=== PATIENT | male | born 1955 | race African-American/Black ===

== ENCOUNTER 2017-10-21 11:53 | Inpatient (IN) | payer MEDICAID, MEDICARE ==
[~2017-10-21] VITALS: Ht 188 cm; Wt 90.7 kg
[~2017-10-21 11:53] MED LIST: AMLO10TA2 PO; ENAL10TA PO
[2017-10-21] MEDS ORDERED: ZOLPIDEM TARTRATE 10 MG TABLET (12:13)
[2017-10-21] MEDS ORDERED: LISINOPRIL 10 MG TABLET (12:13)
[2017-10-21] MEDS ORDERED: ALPRAZOLAM 2 MG (12:13)
[2017-10-21] MEDS ORDERED: D AMPHETAMINE SALT COMBO (12:13)
[2017-10-21] MEDS ORDERED: HYDROCODONE/ACETAMINOPHEN 10-3 (12:13)
[2017-10-21] MEDS ORDERED: CARVEDILOL 25 MG TABLET (12:13)
[2017-10-21] MEDS ORDERED: ONDANSETRON 4 MG/2 ML VIAL IV ONE ×2 (12:30→15:15)
[2017-10-21] MEDS ORDERED: ONDANSETRON 4 MG/2 ML VIAL ONE ×2 (12:45→15:27)
[2017-10-21 12:56] LABS: BASOPHILS # (AUTO) 0.1 K/uL (0.0-8.0); BASOPHILS % (AUTO) 0.4 % (0.0-2.0); EOSINOPHILS # (AUTO) 0.2 K/uL (0.0-0.7); EOSINOPHILS % (AUTO) 1.9 % (0.0-7.0); HEMATOCRIT 40.5 % (36.7-47.1); HEMOGLOBIN 13.3 g/dL (12.5-16.3); LYMPHOCYTES # (AUTO) 1.7 K/uL (20.0-40.0); LYMPHOCYTES % (AUTO) 13.1 % (20.5-51.5); MEAN CORPUSCULAR HEMOGLOBIN 27.4 uug (23.8-33.4); MEAN CORPUSCULAR HGB CONC 33 g/dL (32.5-36.3); MEAN CORPUSCULAR VOLUME 83.1 fL (73.0-96.2); MONOCYTES # (AUTO) 0.9 K/uL (2.0-10.0); MONOCYTES % (AUTO) 7.5 % (0.0-11.0); NEUTROPHILS # (AUTO) 9.8 K/uL (1.8-8.9); NEUTROPHILS % (AUTO) 77.1 % (38.5-71.5); PLATELET COUNT (AUTO) 208 K/uL (152-348); RED BLOOD CELL COUNT(AUTO) 4.87 MIL/uL (4.06-5.63); WHITE BLOOD COUNT (AUTO) 12.7 K/uL (3.6-10.2)
[2017-10-21 13:10] LABS: BILIRUBIN,DIRECT 0.1 mg/dL (0.0-0.2); BILIRUBIN,TOTAL 0.3 mg/dL (0.2-1.0); CREATININE 1.7 mg/dL (0.6-1.3); POTASSIUM 3.7 mmol/L (3.5-5.1); TOTAL PROTEIN, SERUM 7.8 g/dL (6.4-8.2)
[2017-10-21] MEDS ORDERED: IV NORMAL SALINE 500 ML BAG IV ONE ×2 (14:15→15:15)
[2017-10-21 16:05] LABS: *BILIRUBIN,URIN NEGATIVE (NEGATIVE); *BLOOD, URINE NEGATIVE (NEGATIVE); *CLARITY,URINE SLIGHTLY CLOUDY (CLEAR); *COLOR,URINE YELLOW (YELLOW); *KETONES,URINE NEGATIVE (NEGATIVE); *PROTEIN,URINE 2+ (NEGATIVE); *UROBILINOGEN,URINE 0.2 E.U./dl (NORMAL); LEUKOCYTE ESTERASE ,URINE TRACE (NEGATIVE); NITRITE, URINE NEGATIVE (NEGATIVE); PH,URINE 5.5 (5.0-8.0); UGLUCOSE NEGATIVE (NEGATIVE)
[2017-10-21 16:14] LABS: BACTERIA,URINE FEW /HPF (NONE SEEN); SQUAMOUS EPITHELIAL CELL,UR FEW /HPF (NONE SEEN); WBC,URINE 20-50 /HPF (0-3)
[2017-10-21] MEDS ORDERED: CEFTRIAXONE 1 G in IV DEXTROSE 5% 50 ML IV ONE (16:30)
[2017-10-21] MEDS ORDERED: CEFTRIAXONE 1 G VIAL ONE (16:49)
[2017-10-21 17:30] VITALS: BP 165/94
[2017-10-21] MEDS ORDERED: ACETAMINOPHEN 325 MG TABLET PO PRN (17:30)
[2017-10-21] MEDS ORDERED: ONDANSETRON 4 MG/2 ML VIAL IV PRN (17:30)
[2017-10-21] MEDS ORDERED: Z GUARD REMEDY PASTE 57 GM TUBE TOP PRN (17:30)
[2017-10-21] MEDS ORDERED: ZOLPIDEM 5 MG TABLET PO PRN (17:30)
[2017-10-21] MEDS: CARVEDILOL 25 MG TABLET PO SCH (17:48)
[2017-10-21] MEDS: CEFTRIAXONE 1 G in IV DEXTROSE 5% 50 ML IV SCH (18:56)
[2017-10-21 20:00] VITALS: BP 158/90
[2017-10-21] MEDS: ENOXAPARIN SODIUM 40 MG/0.4 ML DISP.SYRIN SQ SCH (20:44)
[2017-10-22] VITALS: BP 157/82
[2017-10-22] MEDS: HYDROCODONE/APAP 10-325 MG TABLET PO PRN ×2 (00:18→12:06)
[2017-10-22 04:00] VITALS: BP 161/92
[2017-10-22 07:00] LABS: BASOPHILS % (AUTO) 0.3 % (0.0-2.0); EOSINOPHILS # (AUTO) 0.1 K/uL (0.0-0.7); EOSINOPHILS % (AUTO) 0.5 % (0.0-7.0); HEMATOCRIT 42.5 % (36.7-47.1); HEMOGLOBIN 14.4 g/dL (12.5-16.3); LYMPHOCYTES % (AUTO) 17.8 % (20.5-51.5); MEAN CORPUSCULAR HEMOGLOBIN 27.9 uug (23.8-33.4); MEAN CORPUSCULAR HGB CONC 34 g/dL (32.5-36.3); MEAN CORPUSCULAR VOLUME 82.5 fL (73.0-96.2); MONOCYTES # (AUTO) 0.9 K/uL (2.0-10.0); MONOCYTES % (AUTO) 8.3 % (0.0-11.0); NEUTROPHILS % (AUTO) 73.1 % (38.5-71.5); PLATELET COUNT (AUTO) 217 K/uL (152-348); RED BLOOD CELL COUNT(AUTO) 5.16 MIL/uL (4.06-5.63)
[2017-10-22 07:14] LABS: BILIRUBIN,TOTAL 0.4 mg/dL (0.2-1.0); CREATININE 1.8 mg/dL (0.6-1.3); MAGNESIUM 1.9 mg/dL (1.8-2.4); PHOSPHOROUS 3.7 mg/dL (2.5-4.9); POTASSIUM 4.4 mmol/L (3.5-5.1); TOTAL PROTEIN, SERUM 7.2 g/dL (6.4-8.2)
[2017-10-22] MEDS: CARVEDILOL 25 MG TABLET PO SCH ×2 (08:03→17:06)
[2017-10-22] MEDS: LISINOPRIL 10 MG TABLET PO SCH (08:50)
[2017-10-22 11:21] LABS: THYROID STIMULATING HORMONE 1.095 mIU/mL (0.358-3.740)
[2017-10-22 11:46] VITALS: BP 132/72
[2017-10-22 11:51] VITALS: BP 160/87
[2017-10-22] MEDS: AMLODIPINE 5 MG TABLET PO SCH ×2 (12:06→20:42)
[2017-10-22 16:03] VITALS: BP 122/52
[2017-10-22] MEDS: CEFTRIAXONE 1 G in IV DEXTROSE 5% 50 ML IV SCH (17:04)
[2017-10-22 18:26] LABS: *CREATININE,URINE 276.4 mg/dL (30-125); *URINE TOTAL PROTEIN RANDOM 114.8 mg/dL (<150/24HR)
[2017-10-22 18:28] LABS: *BILIRUBIN,URIN NEGATIVE (NEGATIVE); *BLOOD, URINE Trace-intact (NEGATIVE); *CLARITY,URINE SLIGHTLY CLOUDY (CLEAR); *COLOR,URINE YELLOW (YELLOW); *KETONES,URINE NEGATIVE (NEGATIVE); *PROTEIN,URINE 2+ (NEGATIVE); *UROBILINOGEN,URINE 0.2 E.U./dl (NORMAL); LEUKOCYTE ESTERASE ,URINE NEGATIVE (NEGATIVE); NITRITE, URINE NEGATIVE (NEGATIVE); UGLUCOSE NEGATIVE (NEGATIVE)
[2017-10-22 19:11] LABS: SQUAMOUS EPITHELIAL CELL,UR FEW /HPF (NONE SEEN)
[2017-10-22 19:12] LABS: BACTERIA,URINE RARE /HPF (NONE SEEN)
[2017-10-22 20:00] VITALS: BP 133/61
[2017-10-22] MEDS: LACTULOSE 20 G/30 ML LIQUID UDC PO SCH (20:42)
[2017-10-22] MEDS: ENOXAPARIN SODIUM 40 MG/0.4 ML DISP.SYRIN SQ SCH (20:45)
[2017-10-22] MEDS: MORPHINE SULFATE 4 MG/1 ML DISP.SYRIN IV PRN (20:49)
[2017-10-22] MEDS: hydrALAZINE HCL 25 MG TABLET PO SCH (22:31)
[2017-10-23] VITALS: BP 125/61
[2017-10-23 04:00] VITALS: BP 138/72
[2017-10-23] MEDS: hydrALAZINE HCL 25 MG TABLET PO SCH ×3 (05:32→23:10)
[2017-10-23 06:45] LABS: BASOPHILS # (AUTO) 0.1 K/uL (0.0-8.0); BASOPHILS % (AUTO) 0.5 % (0.0-2.0); EOSINOPHILS # (AUTO) 0.1 K/uL (0.0-0.7); EOSINOPHILS % (AUTO) 0.7 % (0.0-7.0); HEMOGLOBIN 13.5 g/dL (12.5-16.3); LYMPHOCYTES # (AUTO) 1.7 K/uL (20.0-40.0); LYMPHOCYTES % (AUTO) 12.5 % (20.5-51.5); MEAN CORPUSCULAR HEMOGLOBIN 27.6 uug (23.8-33.4); MEAN CORPUSCULAR HGB CONC 34 g/dL (32.5-36.3); MEAN CORPUSCULAR VOLUME 81.7 fL (73.0-96.2); MONOCYTES # (AUTO) 1.4 K/uL (2.0-10.0); MONOCYTES % (AUTO) 9.9 % (0.0-11.0); NEUTROPHILS # (AUTO) 10.6 K/uL (1.8-8.9); NEUTROPHILS % (AUTO) 76.4 % (38.5-71.5); PLATELET COUNT (AUTO) 181 K/uL (152-348); RED BLOOD CELL COUNT(AUTO) 4.89 MIL/uL (4.06-5.63); WHITE BLOOD COUNT (AUTO) 13.9 K/uL (3.6-10.2)
[2017-10-23 06:46] LABS: BILIRUBIN,TOTAL 0.5 mg/dL (0.2-1.0); CREATININE 1.6 mg/dL (0.6-1.3); MAGNESIUM 1.8 mg/dL (1.8-2.4); PHOSPHOROUS 2.8 mg/dL (2.5-4.9)
[2017-10-23] MEDS: LISINOPRIL 10 MG TABLET PO SCH (08:15)
[2017-10-23] MEDS: CARVEDILOL 25 MG TABLET PO SCH ×2 (08:15→17:29)
[2017-10-23] MEDS: LACTULOSE 20 G/30 ML LIQUID UDC PO SCH ×2 (08:16→20:31)
[2017-10-23] MEDS: AMLODIPINE 5 MG TABLET PO SCH ×2 (08:16→20:31)
[2017-10-23] MEDS: MORPHINE SULFATE 4 MG/1 ML DISP.SYRIN IV PRN ×3 (08:20→20:53)
[2017-10-23] MEDS ORDERED: VANCOMYCIN IV 1 G in PREMIXED 0 EACH IV ONE (10:45)
[2017-10-23 11:55] VITALS: BP 109/69
[2017-10-23] MEDS: MEROPENEM 1 G in IV NORMAL SALINE 100 ML IV SCH ×2 (12:24→20:31)
[2017-10-23] MEDS ORDERED: VANCOMYCIN IV 1,500 MG in IV DEXTROSE 5% 500 ML IV ONE (13:00)
[2017-10-23 15:39] VITALS: BP 101/57
[2017-10-23 20:00] VITALS: BP 130/52
[2017-10-23] MEDS: ENOXAPARIN SODIUM 40 MG/0.4 ML DISP.SYRIN SQ SCH (20:35)
[2017-10-24] MEDS: MEROPENEM 1 G in IV NORMAL SALINE 100 ML IV SCH ×3 (03:58→20:13)
[2017-10-24 05:07] VITALS: BP 125/61
[2017-10-24] MEDS: hydrALAZINE HCL 25 MG TABLET PO SCH ×3 (06:32→22:00)
[2017-10-24 06:41] LABS: BASOPHILS % (AUTO) 0.4 % (0.0-2.0); EOSINOPHILS # (AUTO) 0.1 K/uL (0.0-0.7); EOSINOPHILS % (AUTO) 0.8 % (0.0-7.0); HEMATOCRIT 39.6 % (36.7-47.1); HEMOGLOBIN 13.2 g/dL (12.5-16.3); LYMPHOCYTES # (AUTO) 1.8 K/uL (20.0-40.0); MEAN CORPUSCULAR HEMOGLOBIN 27.4 uug (23.8-33.4); MEAN CORPUSCULAR HGB CONC 33 g/dL (32.5-36.3); MEAN CORPUSCULAR VOLUME 82.5 fL (73.0-96.2); MONOCYTES # (AUTO) 1.5 K/uL (2.0-10.0); MONOCYTES % (AUTO) 13.2 % (0.0-11.0); NEUTROPHILS # (AUTO) 7.7 K/uL (1.8-8.9); NEUTROPHILS % (AUTO) 69.6 % (38.5-71.5); PLATELET COUNT (AUTO) 168 K/uL (152-348); WHITE BLOOD COUNT (AUTO) 11.1 K/uL (3.6-10.2)
[2017-10-24 07:02] LABS: CREATININE 1.7 mg/dL (0.6-1.3); MAGNESIUM 2.1 mg/dL (1.8-2.4); PHOSPHOROUS 3.2 mg/dL (2.5-4.9); POTASSIUM 4.1 mmol/L (3.5-5.1)
[2017-10-24] MEDS: AMLODIPINE 5 MG TABLET PO SCH ×2 (08:10→21:52)
[2017-10-24] MEDS: LISINOPRIL 10 MG TABLET PO SCH (08:11)
[2017-10-24] MEDS: CARVEDILOL 25 MG TABLET PO SCH ×2 (08:11→18:05)
[2017-10-24] MEDS: LACTULOSE 20 G/30 ML LIQUID UDC PO SCH ×2 (08:12→20:12)
[2017-10-24] MEDS: ALPRAZOLAM 0.5 MG TABLET PO PRN ×2 (08:12→20:12)
[2017-10-24 08:30] VITALS: BP 116/51
[2017-10-24] MEDS ORDERED: VANCOMYCIN IV 1,500 MG in IV DEXTROSE 5% 500 ML IV ONE (09:00)
[2017-10-24] MEDS: MORPHINE SULFATE 4 MG/1 ML DISP.SYRIN IV PRN ×3 (10:12→22:38)
[2017-10-24 11:16] VITALS: BP 115/58
[2017-10-24] MEDS ORDERED: MAGNESIUM CITRATE 296 ML BOTTLE PO ONE (14:45)
[2017-10-24 15:22] VITALS: BP 104/58
[2017-10-24 20:45] VITALS: BP 108/66
[2017-10-24] MEDS ORDERED: TAMSULOSIN HCL 0.4 MG CAP.SR.24H PO SCH (21:00)
[2017-10-24] MEDS: ENOXAPARIN SODIUM 40 MG/0.4 ML DISP.SYRIN SQ SCH (22:07)
[2017-10-25] MEDS: MEROPENEM 1 G in IV NORMAL SALINE 100 ML IV SCH ×2 (03:23→11:55)
[2017-10-25 04:59] VITALS: BP 95/45
[2017-10-25 05:06] LABS: A/G RATIO 0.9 (0.7-1.7); ALBUMIN 2.9 g/dL (2.9-4.4); ALPHA-1-GLOBULIN 0.3 g/dL (0.0-0.4); ALPHA-2-GLOBULIN 0.7 g/dL (0.4-1.0); BETA GLOBULIN 1.1 g/dL (0.7-1.3); GAMMA GLOBULIN 1.2 g/dL (0.4-1.8); GLOBULIN, TOTAL 3.2 g/dL (2.2-3.9); M-SPIKE Not Observed g/dL (Not Observed)
[2017-10-25] MEDS: hydrALAZINE HCL 25 MG TABLET PO SCH (06:00)
[2017-10-25 06:34] LABS: CREATININE 1.5 mg/dL (0.6-1.3); MAGNESIUM 2.3 mg/dL (1.8-2.4); PHOSPHOROUS 3.3 mg/dL (2.5-4.9); POTASSIUM 3.7 mmol/L (3.5-5.1)
[2017-10-25 06:44] LABS: BASOPHILS % (AUTO) 0.2 % (0.0-2.0); EOSINOPHILS # (AUTO) 0.2 K/uL (0.0-0.7); EOSINOPHILS % (AUTO) 1.8 % (0.0-7.0); HEMATOCRIT 38.7 % (36.7-47.1); HEMOGLOBIN 12.7 g/dL (12.5-16.3); LYMPHOCYTES # (AUTO) 1.5 K/uL (20.0-40.0); LYMPHOCYTES % (AUTO) 17.4 % (20.5-51.5); MEAN CORPUSCULAR HEMOGLOBIN 27.3 uug (23.8-33.4); MEAN CORPUSCULAR HGB CONC 33 g/dL (32.5-36.3); MEAN CORPUSCULAR VOLUME 83.4 fL (73.0-96.2); MONOCYTES # (AUTO) 1.1 K/uL (2.0-10.0); MONOCYTES % (AUTO) 12.2 % (0.0-11.0); NEUTROPHILS % (AUTO) 68.4 % (38.5-71.5); PLATELET COUNT (AUTO) 197 K/uL (152-348); RED BLOOD CELL COUNT(AUTO) 4.64 MIL/uL (4.06-5.63); WHITE BLOOD COUNT (AUTO) 8.8 K/uL (3.6-10.2)
[2017-10-25] MEDS: LACTULOSE 20 G/30 ML LIQUID UDC PO SCH (08:26)
[2017-10-25] MEDS: CARVEDILOL 25 MG TABLET PO SCH (08:27)
[2017-10-25] MEDS: MORPHINE SULFATE 4 MG/1 ML DISP.SYRIN IV PRN (08:28)
[2017-10-25] MEDS ORDERED: DOCUSATE SODIUM 100 MG CAPSULE PO SCH (09:00)
[2017-10-25] MEDS: LISINOPRIL 10 MG TABLET PO SCH (10:03)
[2017-10-25] MEDS: AMLODIPINE 5 MG TABLET PO SCH (10:03)
[2017-10-25 11:04] VITALS: BP 104/62
== END 2017-10-25 13:50 | disposition home or self-care (01) | DRG 682 ==
LOC: ER 11:58 → TELE 17:13 → MED 10-23 20:30
PROVIDERS: ADMIT Nurse Practitioner Acute Care; ATTEND Nurse Practitioner Acute Care
DX: N17.0 Acute kidney failure with tubular necrosis (principal); I21.A1 Myocardial infarction type 2; I50.43 Acute on chronic combined systolic (congestive) and diastolic (congestive) heart failure; E44.0 Moderate protein-calorie malnutrition; I42.9 Cardiomyopathy, unspecified; E87.1 Hypo-osmolality and hyponatremia; N10 Acute pyelonephritis; B96.89 Other specified bacterial agents as the cause of diseases classified elsewhere; Z90.49 Acquired absence of other specified parts of digestive tract; Z85.038 Personal history of other malignant neoplasm of large intestine; Z68.25 Body mass index [BMI] 25.0-25.9, adult; H54.8 Legal blindness, as defined in USA; H35.30 Unspecified macular degeneration; Z95.810 Presence of automatic (implantable) cardiac defibrillator; F41.9 Anxiety disorder, unspecified; F32.9 Major depressive disorder, single episode, unspecified; R22.9 Localized swelling, mass and lump, unspecified; E78.5 Hyperlipidemia, unspecified; I25.10 Atherosclerotic heart disease of native coronary artery without angina pectoris; I11.0 Hypertensive heart disease with heart failure; F17.210 Nicotine dependence, cigarettes, uncomplicated; G47.00 Insomnia, unspecified; K57.30 Diverticulosis of large intestine without perforation or abscess without bleeding; N20.0 Calculus of kidney; Z79.899 Other long term (current) drug therapy; N40.0 Benign prostatic hyperplasia without lower urinary tract symptoms; I49.1 Atrial premature depolarization
CPT/HCPCS: 36415; 70030-TC; 71045; 83605; 83690; 83735; 83970; 84100; 84155; 84156; 84165; 84300; 84443; 85025; 87086; 93005; 93307; 97165; A4663; C1758; J0696; J1650; J2185; J2270; J2405; J3370; J3490; J7030; J7040; J7060

== ENCOUNTER 2018-02-24 13:20 | Emergency (ER) | payer MEDICARE ==
[~2018-02-24] VITALS: Ht 188 cm; Wt 90.7 kg
[~2018-02-24 13:20] MED LIST changes: +ALPRAZOLAM 2 MG; -AMLO10TA2 PO; +CARVEDILOL 25 MG TABLET; -ENAL10TA PO; +HYDROCODONE/ACETAMINOPHEN 10-3; +LISINOPRIL 10 MG TABLET; +ZOLPIDEM TARTRATE 10 MG TABLET
[2018-02-24 14:25] LABS: BASOPHILS % (AUTO) 0.5 % (0.0-2.0); EOSINOPHILS # (AUTO) 0.3 K/uL (0.0-0.7); EOSINOPHILS % (AUTO) 4.1 % (0.0-7.0); HEMATOCRIT 37.9 % (36.7-47.1); HEMOGLOBIN 13.1 g/dL (12.5-16.3); LYMPHOCYTES # (AUTO) 1.9 K/uL (20.0-40.0); LYMPHOCYTES % (AUTO) 30.8 % (20.5-51.5); MEAN CORPUSCULAR HEMOGLOBIN 32.1 uug (23.8-33.4); MEAN CORPUSCULAR HGB CONC 35 g/dL (32.5-36.3); MEAN CORPUSCULAR VOLUME 92.7 fL (73.0-96.2); MONOCYTES # (AUTO) 0.4 K/uL (2.0-10.0); MONOCYTES % (AUTO) 6.4 % (0.0-11.0); NEUTROPHILS # (AUTO) 3.6 K/uL (1.8-8.9); NEUTROPHILS % (AUTO) 58.2 % (38.5-71.5); PLATELET COUNT (AUTO) 221 K/uL (152-348); RED BLOOD CELL COUNT(AUTO) 4.09 MIL/uL (4.06-5.63); WHITE BLOOD COUNT (AUTO) 6.2 K/uL (3.6-10.2)
[2018-02-24 14:30] LABS: CARBON DIOXIDE 30 mmol/L (21-32); CHLORIDE 106 mmol/L (98-107); CREATININE 1.1 mg/dL (0.6-1.3); GLUCOSE 113 mg/dL (74-106); UREA NITROGEN, BLOOD 14 mg/dL (7-18)
[2018-02-24 14:42] LABS: THYROID STIMULATING HORMONE 0.449 mIU/mL (0.358-3.740)
--- NOTE | 2018-02-24 14:50 | NUR ---
LABS DRAWN EARLIER, PT ASKED FOR URINE EARLIWER AND WAS NOT ABLE TO PROVIDE URIN. PRESENTLY PT IS SLEEPING, NO DISTRESS NOTED.
[2018-02-24 14:56] LABS: ALANINE AMINOTRANSFERASE 16 U/L (16-63); ALKALINE PHOSPHATASE 74 U/L (50-136); ASPARTATE AMINOTRANSFERASE 15 U/L (15-37); BILIRUBIN,DIRECT 0.1 mg/dL (0.0-0.2); BILIRUBIN,TOTAL 0.5 mg/dL (0.2-1.0); TOTAL PROTEIN, SERUM 7.2 g/dL (6.4-8.2)
[2018-02-24 15:20] LABS: ETHANOL < 3 MG/DL (0-0)
[2018-02-24 17:22] LABS: *BILIRUBIN,URIN 1+ (NEGATIVE); *BLOOD, URINE Trace-intact (NEGATIVE); *CLARITY,URINE SLIGHTLY CLOUDY (CLEAR); *COLOR,URINE YELLOW (YELLOW); *KETONES,URINE NEGATIVE (NEGATIVE); *PROTEIN,URINE 1+ (NEGATIVE); LEUKOCYTE ESTERASE ,URINE TRACE (NEGATIVE); NITRITE, URINE NEGATIVE (NEGATIVE); PH,URINE 5.5 (5.0-8.0); UGLUCOSE NEGATIVE (NEGATIVE)
[2018-02-24 17:24] LABS: *AMPHETAMINE, URINE POSITIVE (NEGATIVE); *BARBITURATE, URINE NEGATIVE (NEGATIVE); *CANNABINOID, URINE POSITIVE (NEGATIVE); *COCCAINE, URINE NEGATIVE (NEGATIVE); *OPIATE, URINE NEGATIVE (NEGATIVE); *PHENCYCLIDINE SCREEN,URINE NEGATIVE (NEGATIVE)
[2018-02-24 17:25] LABS: BACTERIA,URINE FEW /HPF (NONE SEEN); SQUAMOUS EPITHELIAL CELL,UR FEW /HPF (NONE SEEN); WBC,URINE 20-50 /HPF (0-3)
--- NOTE | 2018-02-24 18:31 | NUR ---
PRATIBHA COMPLETED, PT READY FOR DISCHARGE, CALLED HIS FRIEND ALISON AT [phone], WHOM STATED HES WOULD COME FOR PT.
--- NOTE | 2018-02-24 18:50 | NUR ---
PT'S FRIEND ARRIVED.Patient discharged to home in stable conditon. Written and verbal after care instructions given. Patient verbalizes understanding of instructions. (pt. name) ambulatory with a steady gait
[2018-02-24 18:59] VITALS: BP 144/88
== END 2018-02-24 18:50 | disposition home or self-care (01) ==
LOC: ER 13:20
DX: F19.10 Other psychoactive substance abuse, uncomplicated (principal); I11.0 Hypertensive heart disease with heart failure; I50.9 Heart failure, unspecified; F17.200 Nicotine dependence, unspecified, uncomplicated
CPT/HCPCS: 36415; 70450; 80307; 84443; 85025; A4663; G0480

== ENCOUNTER 2018-04-25 02:12 | Emergency (ER) | payer MEDICARE ==
[~2018-04-25] VITALS: Ht 188 cm; Wt 91.6 kg
--- NOTE | 2018-04-25 02:24 | NUR ---
PT A/OX4, RESPONSIVE TO VERBAL AND TACTILE STIMULI. PT C/O L HIP PAIN X 3 MONTHS, PROVOKED UPON WALKING/MOVEMENT, SHARP IN QUALITY, DOES NOT RADIATE, 8/10, CONSTANT. PT DENIES FALL/INJURY. PT SELF-AMBULATES WITHOUT DIFFICULTY. NO DEFORMITY TO L HIP. PT DENIES C/P, SOB, N/V/D, DIZZINESS, HEADACHE.
--- NOTE | 2018-04-25 02:26 | NUR ---
[facility] ARDON AT BEDSIDE FOR MSE.
--- NOTE | 2018-04-25 02:32 | NUR ---
[employer] AT BEDSIDE.
--- NOTE | 2018-04-25 02:57 | NUR ---
Patient discharged to home in stable conditon. Written and verbal after care instructions given. Patient verbalizes understanding of instructions. PT SELF-AMBULATED WITHOUT DIFFICULTY. ALL BELONGINGS W/ PT.
[2018-04-25 02:58] VITALS: BP 133/70
== END 2018-04-25 02:59 | disposition home or self-care (01) ==
LOC: ER 02:17
DX: G89.29 Other chronic pain (principal); M25.552 Pain in left hip; I11.0 Hypertensive heart disease with heart failure; I50.9 Heart failure, unspecified; F17.200 Nicotine dependence, unspecified, uncomplicated; Z90.49 Acquired absence of other specified parts of digestive tract
CPT/HCPCS: 73502; A4663